=== PATIENT | male | born 2000 | race Hispanic/Latino ===

== ENCOUNTER 2023-01-26 12:24 | Emergency (ER) | payer SELFPAY ==
[2023-01-26] MEDS ORDERED: Dexamethasone 10 MG/ML VIAL ONE (13:15)
[2023-01-26] MEDS ORDERED: Ketorolac Tromethamine 30 MG/ML VIAL ONE (13:15)
[2023-01-26] MEDS ORDERED: diphenhydrAMINE 50 MG/ML VIAL ONE (13:15)
[2023-01-26] MEDS ORDERED: Metoclopramide HCl 10 MG/2 ML VIAL ONE (13:15)
== END 2023-01-26 14:15 | disposition home or self-care (01) ==
LOC: CSHERS 12:24
DX: R51.9 Headache, unspecified (principal)
CPT/HCPCS: 96361; 96374; 96375; J1100; J1200; J1885; J2765